=== PATIENT | female | born 1950 | race Caucasian/White ===

== ENCOUNTER 2022-06-30 18:19 | Emergency (ER) | payer MEDICAID, OTHER ==
[~2022-06-30] VITALS: Ht 157.5 cm; Wt 44.0 kg
[2022-06-30 18:34] VITALS: BP 214/101
[2022-06-30] MEDS ORDERED: hydrALAZINE HCL 20 MG/ML VL IV ONE (20:00)
== END 2022-06-30 22:49 | disposition left against medical advice (07) ==
LOC: EDBD 18:19 → ER 18:22
DX: I10 Essential (primary) hypertension (principal); Z88.6 Allergy status to analgesic agent; F17.210 Nicotine dependence, cigarettes, uncomplicated
CPT/HCPCS: 71045; 93005